=== PATIENT | male | born 1965 | race Hispanic/Latino ===

== ENCOUNTER 2020-11-25 09:09 | Emergency (ER) | payer MEDICARE ==
--- NOTE | 2020-11-25 10:45 | XRay Report ---
XR chest routine 2V INDICATION / CLINICAL INFORMATION: cough COMPARISON: None available. FINDINGS: SUPPORT DEVICES: None. HEART / MEDIASTINUM: No significant abnormality. LUNGS / PLEURA: Lungs are clear. Costophrenic sulci are sharp. No pneumothorax. ADDITIONAL FINDINGS: No significant additional findings. IMPRESSION: 1. No acute findings. Signer Name: Victorino Sheriff MD Signed: 11/25/2020 10:41 AM Workstation Name: [id number]
[2020-11-25 11:05] LABS: Basophils % (Auto) 0.4 % (0.0-1.8); Hematocrit 45.7 % (35.5-45.6); Hemoglobin 15.6 gm/dl (11.8-15.2); Lymphocytes # (Auto) 0.7 K/mm3 (1.2-5.4); Lymphocytes % (Auto) 19.6 % (13.4-35.0); Mean Corpuscular HGB Conc 34 % (32-34); Mean Corpuscular Volume 89 fl (84-94); Monocytes # (Auto) 0.3 K/mm3 (0.0-0.8); Monocytes % (Auto) 8.8 % (0.0-7.3); Platelet Count 151 K/mm3 (140-440); Red Blood Count 5.14 M/mm3 (3.65-5.03); Red Cell Distribution Width 13.6 % (13.2-15.2)
[2020-11-25 11:22] LABS: Alanine Aminotransferase 28 units/L (7-56); Albumin 4.2 g/dL (3.9-5); BUN/Creatinine Ratio 11; Blood Urea Nitrogen 10 mg/dL (9-20); Calcium 9.2 mg/dL (8.4-10.2); Hemolysis Index 10
--- NOTE | 2020-11-25 12:29 | Emergency Department Report ---
ED General Adult HPI - General Chief complaint: Upper Respiratory Infection Stated complaint: HEADACHE COUGH NAUSEA VOMITING Time Seen by Provider: 11/25/20 11:56 Source: patient Mode of arrival: Ambulatory Limitations: No Limitations - History of Present Illness Initial comments: 55-year-old male presents to the ER today via EMS with complaints of flulike symptoms. He states that symptoms started about 3 to 4 days ago. Patient reports that in the past 4 to 5 days he has been having symptoms of nausea and vomiting, headache, nonproductive cough and postnasal drainage. He states that he has been having loose stools but not diarrhea. He denies any abdominal pain, chest pain, wheezing or shortness of breath. He denies fever at home or any chills. He admits to positive COVID-19 contact. He states that a few of his bahai members have been positive. He states that he did not get a COVID-19 test because he had no way to get it done because he did not have transportation. He also has not taken the COVID-19 vaccine. He reports a past history of bronchitis but denies any other significant past medical history. MD Complaint: Flu like illness -: days(s) (3-4) - Related Data Previous Rx's Medication Instructions Recorded Last Taken Type Ondansetron [Zofran Odt] 4 mg PO Q8HR PRN #15 tab.rapdis 11/25/20 Unknown Rx Allergies Allergy/AdvReac Type Severity Reaction Status Date / Time morphine Allergy Hives Verified 11/25/20 09:34 ED Review of Systems ROS: Stated complaint: HEADACHE COUGH NAUSEA VOMITING Other details as noted in HPI Comment: All other systems reviewed and negative Constitutional: denies: chills, fever Eyes: denies: eye pain, eye discharge, vision change ENT: throat pain, other (Postnasal drainage) Respiratory: cough Gastrointestinal: nausea, vomiting Neurological: headache ED Past Medical Hx - Past Medical History Previous Medical History?: No - Surgical History Hx Appendectomy: Yes - Medications Home Medications: Home Medications Medication Instructions Recorded Confirmed Last Taken Type Ondansetron [Zofran Odt] 4 mg PO Q8HR PRN #15 tab.rapdis 11/25/20 Unknown Rx ED Physical Exam - General Limitations: No Limitations General appearance: alert, in no apparent distress - Head Head exam: Present: atraumatic, normocephalic, normal inspection - Eye Eye exam: Present: normal appearance, PERRL, EOMI Pupils: Present: normal accommodation - ENT ENT exam: Present: normal exam, mucous membranes moist, TM's normal bilaterally - Neck Neck exam: Present: normal inspection, full ROM. Absent: meningismus - Respiratory Respiratory exam: Present: normal lung sounds bilaterally, other (Dry cough noted on exam). Absent: respiratory distress, wheezes, rales, rhonchi, stridor - Cardiovascular Cardiovascular Exam: Present: regular rate, normal rhythm, normal heart sounds - GI/Abdominal GI/Abdominal exam: Present: soft. Absent: distended, tenderness, guarding, rebound - Neurological Exam Neurological exam: Present: alert, oriented X3, CN II-XII intact, normal gait - Psychiatric Psychiatric exam: Present: normal affect, normal mood - Skin Skin exam: Present: intact ED Course Vital Signs 11/25/20 11/25/20 09:35 14:30 Temperature 100.1 F H 99.2 F Pulse Rate 112 H 100 H Respiratory 18 18 Rate Blood Pressure 129/88 Blood Pressure 116/82 [Right] O2 Sat by Pulse 94 95 Oximetry ED Medical Decision Making - Lab Data Result diagrams: 11/25/20 10:40 11/25/20 10:40 - Radiology Data Radiology results: report reviewed interpreted by me: Patient: HUMA ANTHONY MR#: [id number] : 1965 Acct:[id number] Age/Sex: 55 / M ADM Date: 11/25/20 Loc: ED Attending Dr: Ordering Physician: SRAVANI DUPONT Date of Service: 11/25/20 Procedure(s): XR chest routine 2V Accession Number(s): [id number] cc: SRAVANI DUPONT Fluoro Time In Minutes: XR chest routine 2V INDICATION / CLINICAL INFORMATION: cough COMPARISON: None available. FINDINGS: SUPPORT DEVICES: None. HEART / MEDIASTINUM: No significant abnormality. LUNGS / PLEURA: Lungs are clear. Costophrenic sulci are sharp. No pneumothorax. ADDITIONAL FINDINGS: No significant additional findings. IMPRESSION: 1. No acute findings. Signer Name: Victorino Sheriff MD Signed: 11/25/2020 10:41 AM Workstation Name: [id number] Transcribed By: CS Dictated By: Victorino Sheriff MD Electronically Authenticated By: Victorino Sheriff MD Signed Date/Time: 11/25/20 1041 DD/ 1040 TD/TT: - Medical Decision Making 1436: Patient currently resting comfortably. He is not currently in any acute pain or respiratory distress. He reports feeling a little better after IV fluids and meds. He is not toxic or ill-appearing. He is neurologically intact with a normal gait. He has not had any vomiting during stay. His repeat vital signs shows improvement and is stable. Chest x-ray shows nothing acute. Labs reviewed, CBC and CMP shows no significant abnormalities. Discussed lab and imaging results with patient. Suspect that his symptoms are related to a viral illness at this time and since some of his bahai members who had Covid I did recommend that he get an outpatient COVID-19 test. His history, exam, diagnostic testing and current condition do not demonstrate an infectious process such as meningitis, severe pneumonia, retropharyngeal abscess, epiglottitis, acute respiratory distress syndrome, significant intra- abdominal abnormality, sepsis or other serious viral/bacterial infection requiring further testing, treatment, consultation or admission at this time. He Expressed understanding of instructions and agree with plan. Patient was stable at time of discharge. Critical care attestation.: If time is entered above; I have spent that time in minutes in the direct care of this critically ill patient, excluding procedure time. ED Disposition Clinical Impression: Viral syndrome, URI (upper respiratory infection) Disposition: DC-01 TO HOME OR SELFCARE Is pt being admited?: No Does the pt Need Aspirin: No Condition: Stable Instructions: Viral Respiratory Infection, Ahgv-In-Dsrm, Viral Illness, Adult Additional Instructions: Take the zofran as needed for nausea and vomiting. You can take either Claritin, Zyrtec or Kim to help with the upper respiratory symptoms and you can also take Mucinex or Robitussin to help your cough. You can take Tylenol and ibuprofen to help with any pain or fever. Recommend that you drink lots of fluids. It is important that you get an outpatient COVID-19 test which you can get done at any local urgent cares or [facility] or [facility] pharmacies. In the meantime I recommend that you quarantine at home, continue to wear a mask at all times, take a multivitamin containing vitamin C, zinc and vitamin D. Follow-up closely with local primary care doctor. Return to the ER if your symptoms changes in any way. Prescriptions: Ondansetron [Zofran Odt] 4 mg PO Q8HR PRN #15 tab.rapdis PRN Reason: Vomiting Referrals: DEJAH PERKINS MD [Staff Physician] - 3-5 Days HEIDI ARTEAGA MD [Staff Physician] - 3-5 Days Time of Disposition: 14:08
[2020-11-25] MEDS ORDERED: SODIUM CHLORIDE 0.9% 1000 ML 1,000 ML IV ONE (12:42)
[2020-11-25] MEDS ORDERED: KETOROLAC 30 MG/1 ML INJ IV ONE (12:42)
[2020-11-25] MEDS ORDERED: ONDANSETRON 4 MG/2 ML INJ IV ONE (12:42)
[2020-11-25] MEDS ORDERED: ACETAMINOPHEN 325 MG TAB PO ONE (12:43)
[2020-11-25 14:32] VITALS: BP 116/82
== END 2020-11-25 14:39 | disposition home or self-care (01) ==
LOC: ED 09:09
DX: B34.9 Viral infection, unspecified (principal); J06.9 Acute upper respiratory infection, unspecified; Z79.899 Other long term (current) drug therapy; Z88.6 Allergy status to analgesic agent; Z90.49 Acquired absence of other specified parts of digestive tract
CPT/HCPCS: 36415; 71046; 80053; 83690; 83735; 85025; 96361; 96374; 96375; 99284; J1885; J2405; J7030

== ENCOUNTER 2021-02-22 06:11 | Emergency (ER) | payer MEDICARE ==
[2021-02-22] MEDS ORDERED: ONDANSETRON 4 MG/2 ML INJ IV ONE (06:47)
[2021-02-22] MEDS ORDERED: SODIUM CHLORIDE 0.9% 1000 ML 1,000 ML IV ONE (07:31)
[2021-02-22 07:50] LABS: Basophils # (Auto) 0.1 K/mm3 (0.0-0.1); Eosinophils # (Auto) 0.1 K/mm3 (0.0-0.4); Eosinophils % (Auto) 1.4 % (0.0-4.3); Hematocrit 45.2 % (35.5-45.6); Hemoglobin 14.9 gm/dl (11.8-15.2); Lymphocytes # (Auto) 1.3 K/mm3 (1.2-5.4); Lymphocytes % (Auto) 27.5 % (13.4-35.0); Mean Corpuscular HGB Conc 33 % (32-34); Mean Corpuscular Volume 89 fl (84-94); Monocytes # (Auto) 0.5 K/mm3 (0.0-0.8); Monocytes % (Auto) 11.4 % (0.0-7.3); Red Blood Count 5.09 M/mm3 (3.65-5.03); Red Cell Distribution Width 14.3 % (13.2-15.2)
[2021-02-22] MEDS ORDERED: BENZONATATE 100 MG CAP PO ONE (08:03)
--- NOTE | 2021-02-22 08:03 | Emergency Department Report ---
HPI - General Chief Complaint: Upper Respiratory Infection Time Seen by Provider: 02/22/21 07:27 - HPI HPI: 55-year-old male presents to the emergency department with complaint of chronic productive cough and chest congestion, but woke up this morning with some episodes of hemoptysis, nausea and vomiting. Patient also complains of generalized weakness. He denies any fever, chest pain, lower extremity swelling. The patient was admitted here on 01/06 with some similar symptoms and was found to be positive for COVID-19. He was discharged home on some antibiotics, but then was placed on a second course of antibiotics by his PCP at the [facility]. He has a past medical history of hypertension. He denies any tobacco or illicit drug use. He has not taken anything for symptoms prior to presentation. No recent travel or sick contacts at home. ED Past Medical Hx - Past Medical History Hx Hypertension: Yes - Surgical History Hx Appendectomy: Yes - Social History Smoking Status: Former Smoker - Medications Home Medications: Home Medications Medication Instructions Recorded Confirmed Last Taken Type Ascorbic Acid [Vitamin C] 500 mg PO BID #60 tablet 01/06/21 Unknown Rx Aspirin 325 mg PO QDAY #30 tablet 01/06/21 Unknown Rx Cholecalciferol Vit D3 [Vitamin D3 1,000 unit PO QDAY #30 tablet 01/06/21 Un known Rx 1,000 UNIT TAB] Famotidine [Pepcid] 10 mg PO BID #60 tablet 01/06/21 Unknown Rx Ondansetron [Zofran ODT TAB] 4 mg PO Q4HR PRN #15 tab.rapdis 01/06/21 Unknown Rx Zinc Sulfate 220 mg PO DAILY #30 capsule 01/06/21 Unknown Rx Albuterol Mdi (or & Nicu Only) 2 puff IH QID PRN #8.5 gram 02/22/21 Unknown Rx [ProAir HFA Inhaler] guaiFENesin/CODEINE [Robitussin AC] 5 ml PO Q6H PRN #100 ml 02/22/21 Unknown Rx ED Review of Systems ROS: Stated complaint: COUGHING BLOOD Other details as noted in HPI Comment: All other systems reviewed and negative Constitutional: weakness. denies: chills, fever Eyes: denies: eye pain, vision change ENT: congestion. denies: throat pain Respiratory: cough, other (Hemoptysis). denies: wheezing Cardiovascular: denies: chest pain, edema Gastrointestinal: nausea, vomiting. denies: abdominal pain Genitourinary: denies: dysuria, discharge Musculoskeletal: myalgia. denies: joint swelling Skin: denies: rash, lesions Neurological: other (Dizziness). denies: headache Physical Exam - Physical Exam Vital Signs: Vital Signs 02/22/21 06:30 Temperature 98.7 F Pulse Rate 133 H Blood Pressure 123/82 O2 Sat by Pulse 100 Oximetry Physical Exam: GENERAL: The patient is well-developed well-nourished. HENT: Normocephalic. Atraumatic. Patient has moist mucous membranes. EYES: Extraocular motions are intact. NECK: Supple. Trachea is midline. CHEST/LUNGS: Clear to auscultation. A productive sounding cough heard during semination. No tachypnea or accessory muscle use. HEART/CARDIOVASCULAR: Regular. There is mild tachycardia. There is no murmur. ABDOMEN: Abdomen is soft, nontender. Patient has normal bowel sounds. There is no abdominal distention. SKIN: Skin is warm and dry. NEURO: The patient is awake, alert, and oriented. The patient is cooperative. The patient has no focal neurologic deficits. Normal speech. MUSCULOSKELETAL: There is no tenderness or deformity. There is no limitation range of motion. ED Course Vital Signs 02/22/21 06:30 Temperature 98.7 F Pulse Rate 133 H Blood Pressure 123/82 O2 Sat by Pulse 100 Oximetry ED Medical Decision Making - Lab Data Result diagrams: 02/22/21 07:34 02/22/21 07:34 Lab Results 02/22/21 02/22/21 02/22/21 Range/Units 07:34 07:34 07:34 WBC 4.8 (4.5-11.0) K/mm3 RBC 5.09 H (3.65-5.03) M/mm3 Hgb 14.9 (11.8-15.2) gm/dl Hct 45.2 (35.5-45.6) % MCV 89 (84-94) fl MCH 29 (28-32) pg MCHC 33 (32-34) % RDW 14.3 (13.2-15.2) % Lymph % (Auto) 27.5 (13.4-35.0) % Snyder % (Auto) 11.4 H (0.0-7.3) % Eos % (Auto) 1.4 (0.0-4.3) % Baso % (Auto) 2.0 H (0.0-1.8) % Lymph # (Auto) 1.3 (1.2-5.4) K/mm3 Snyder # (Auto) 0.5 (0.0-0.8) K/mm3 Eos # (Auto) 0.1 (0.0-0.4) K/mm3 Baso # (Auto) 0.1 (0.0-0.1) K/mm3 Seg Neutrophils % 57.7 (40.0-70.0) % Seg Neutrophils # 2.8 (1.8-7.7) K/mm3 PT 13.9 (12.2-14.9) Sec. INR 0.96 (0.87-1.13) D-Dimer 387.37 H (0-234) ng/mlDDU Sodium 136 L (137-145) mmol/L Potassium 3.5 L (3.6-5.0) mmol/L Chloride 95.7 L (98-107) mmol/L Carbon Dioxide 23 (22-30) mmol/L Anion Gap 21 mmol/L BUN 9 (9-20) mg/dL Creatinine 0.7 L (0.8-1.3) mg/dL Estimated GFR > 60 ml/min BUN/Creatinine Ratio 13 % Glucose 121 H (75-100) mg/dL Calcium 9.7 (8.4-10.2) mg/dL Troponin T < 0.010 (0.00-0.029) ng/mL TSH (0.270-4.200) mlU/mL 02/22/21 Range/Units 08:03 WBC (4.5-11.0) K/mm3 RBC (3.65-5.03) M/mm3 Hgb (11.8-15.2) gm/dl Hct (35.5-45.6) % MCV (84-94) fl MCH (28-32) pg MCHC (32-34) % RDW (13.2-15.2) % Lymph % (Auto) (13.4-35.0) % Snyder % (Auto) (0.0-7.3) % Eos % (Auto) (0.0-4.3) % Baso % (Auto) (0.0-1.8) % Lymph # (Auto) (1.2-5.4) K/mm3 Snyder # (Auto) (0.0-0.8) K/mm3 Eos # (Auto) (0.0-0.4) K/mm3 Baso # (Auto) (0.0-0.1) K/mm3 Seg Neutrophils % (40.0-70.0) % Seg Neutrophils # (1.8-7.7) K/mm3 PT (12.2-14.9) Sec. INR (0.87-1.13) D-Dimer (0-234) ng/mlDDU Sodium (137-145) mmol/L Potassium (3.6-5.0) mmol/L Chloride (98-107) mmol/L Carbon Dioxide (22-30) mmol/L Anion Gap mmol/L BUN (9-20) mg/dL Creatinine (0.8-1.3) mg/dL Estimated GFR ml/min BUN/Creatinine Ratio % Glucose (75-100) mg/dL Calcium (8.4-10.2) mg/dL Troponin T (0.00-0.029) ng/mL TSH 0.432 (0.270-4.200) mlU/mL - Radiology Data Radiology results: report reviewed, image reviewed interpreted by me: Chest x-ray does not show any acute process. There are no pleural effusions, obvious pneumonia and there is no pneumothorax. No widened mediastinum. CTA CHEST WITH CONTRAST INDICATION : SOB, hemoptysis, elevated dimer OMNI 350 100 ML. TECHNIQUE: Axial imaging performed through the chest, with contrast bolus timing set to maximize opacification of the pulmonary arteries. Sagittal and coronal reformatted images. 3-plane MIP reformatted images were obtained. All CT scans at this location are performed using CT dose reduction for ALARA by means of automated exposure control. 100 mL of intravenous contrast administere d. COMPARISON: 01/05/2021 FINDINGS: Bolus: Contrast bolus timing is adequate. PTE: No filling defect is present to suggest PTE. Mediastinum: Heart and great vessels appear normal. No pathologic mediastinal adenopathy. Small hiatal hernia is noted. Lungs: Previously described bilateral groundglass lung opacities have nearly resolved. No consolidation, pleural effusion or pneumothorax. Bones: Degenerative changes in the spine with nothing acute. Upper abdomen: Limited imaging of the upper abdomen shows nothing acute. IMPRESSION: No evidence for pulmonary embolus. Improvement in the bilateral groundglass lung opacities concerning for atypical pneumonia. - Medical Decision Making This patient has been dealing with a cough and chest congestion since getting COVID-19 about 1 month ago. This morning he had some mild hemoptysis and some nausea with vomiting. On examination there is a occasional productive cough heard. Otherwise the patient's lung and heart sounds are normal auscultation, and the patient does not appear in any respiratory or acute distress. Chest x-ray does not show any pneumonia, pleural effusions, pneumothorax, widened mediastinum, or any other acute process. Labs have been mostly unremarkable including CBC, metabolic panel, negative troponin, normal thyroid function, normal coags, but the patient did have a slightly elevated and equivocal D-dimer level. For this reason the patient had a CT angiography of the chest that did not show any pulmonary embolism or dissection. It shows mild resolving bilateral groundglass opacities consistent with his previous COVID-19 infection. Patient's vital signs have been reassuring including being afebrile and no hypoxia. Patient was given a Tessalon Perle for cough, Zofran, and some IV fluid resuscitation. He was reevaluated multiple times over multiple hours and both feels and appears improved. For all these reasons he appears safe for discharge home at this time. He has been given an albuterol inhaler, a prescription for Robitussin-AC, and outpatient referral for pulmonology. He will return to the emergency department with any worsening of his symptoms or with any acute distress. Critical Care Time: No Critical care attestation.: If time is entered above; I have spent that time in minutes in the direct care of this critically ill patient, excluding procedure time. ED Disposition Clinical Impression: Post-COVID chronic cough, History of hemoptysis, Generalized weakness Disposition: 01 HOME / SELF CARE / HOMELESS Is pt being admited?: No Condition: Stable Instructions: Hemoptysis, Cough, Adult, Weakness Additional Instructions: Please follow-up with a primary care physician in the next few days. I am giving you a referral for a local induction coordination engineer, Dr. Hawk, to follow-up regarding your chronic shortness of breath and cough and the chest x-ray changes found after you had Covid pneumonia. Return to the emergency department with any worsening of your symptoms, new or concerning symptoms not addressed during this current emergency department visit, or with any acute distress. You have been prescribed a medication that is sedating and therefore should not be taken prior to driving, working, and responsible for children and in no way should be mixed with alcohol of any quantity. Prescriptions: Albuterol Mdi (or & Nicu Only) [ProAir HFA Inhaler] 2 puff IH QID PRN #8.5 gram PRN Reason: Shortness Of Breath guaiFENesin/CODEINE [Robitussin AC] 5 ml PO Q6H PRN #100 ml PRN Reason: Cough Referrals: REBEKAH HAWK MD [Staff Physician] - 2-3 Days PCP, Your [Other] - 2-3 Days Time of Disposition: 12:05
[2021-02-22 08:08] LABS: INR 0.96 (0.87-1.13)
--- NOTE | 2021-02-22 08:08 | XRay Report ---
CHEST 2 VIEWS INDICATION / CLINICAL INFORMATION: cough. COMPARISON: 01/03/2021 FINDINGS: SUPPORT DEVICES: None. HEART / MEDIASTINUM: No significant abnormality. LUNGS / PLEURA: Stable hyperexpansion consistent with obstructive airways disease. Previously seen pa tchy pulmonary opacities have improved. ADDITIONAL FINDINGS: No significant additional findings. IMPRESSION: 1. No acute findings. Signer Name: Yosi Rangel MD Signed: 02/22/2021 8:04 AM Workstation Name: [id number]
[2021-02-22 08:11] LABS: Blood Urea Nitrogen 9 mg/dL (9-20); Calcium 9.7 mg/dL (8.4-10.2); Hemolysis Index 19
[2021-02-22 08:12] LABS: BUN/Creatinine Ratio 13
--- NOTE | 2021-02-22 10:44 | Cat Scan Report ---
CTA CHEST WITH CONTRAST INDICATION : SOB, hemoptysis, elevated dimer OMNI 350 100 ML. TECHNIQUE: Axial imaging performed through the chest, with contrast bolus timing set to maximize opa cification of the pulmonary arteries. Sagittal and coronal reformatted images. 3-plane MIP reformatte d images were obtained. All CT scans at this location are performed using CT dose reduction for ALAR A by means of automated exposure control. 100 mL of intravenous contrast administered. COMPARISON: 01/05/2021 FINDINGS: Bolus: Contrast bolus timing is adequate. PTE: No filling defect is present to suggest PTE. Mediastinum: Heart and great vessels appear normal. No pathologic mediastinal adenopathy. Small hia aurora hernia is noted. Lungs: Previously described bilateral groundglass lung opacities have nearly resolved. No consolidat ion, pleural effusion or pneumothorax. Bones: Degenerative changes in the spine with nothing acute. Upper abdomen: Limited imaging of the upper abdomen shows nothing acute. IMPRESSION: No evidence for pulmonary embolus. Improvement in the bilateral groundglass lung opacities concerning for atypical pneumonia. Signer Name: Temo Latham Jr, MD Signed: 02/22/2021 10:39 AM Workstation Name: [id number]
[2021-02-22 12:41] VITALS: BP 108/77
[2021-02-22 17:13] LABS: Platelet Count 260 K/mm3 (140-440)
== END 2021-02-22 12:48 | disposition home or self-care (01) ==
LOC: ED 06:11
DX: R05.3 Chronic cough (principal); R04.2 Hemoptysis; R53.1 Weakness; R09.89 Other specified symptoms and signs involving the circulatory and respiratory systems; R11.2 Nausea with vomiting, unspecified; U09.9 Post COVID-19 condition, unspecified; I10 Essential (primary) hypertension; Z98.890 Other specified postprocedural states; Z87.891 Personal history of nicotine dependence; Z88.5 Allergy status to narcotic agent
CPT/HCPCS: 36415; 71046; 71275; 80048; 84443; 84484; 85025; 85379; 85610; 96361; 96374; 99285; J2405; J7030; Q9967